=== PATIENT | female | born 1960 ===

== ENCOUNTER 2018-11-18 10:26 | Day surgery (SDC) | payer OTHER ==
[2018-11-16 13:21] LABS: BASOPHILS % (AUTO) 0.8 % (0.0-2.0); EOSINOPHILS % (AUTO) 2.4 % (0.0-3.0); HEMATOCRIT 36.5 % (37.0-47.0); HEMOGLOBIN 12.3 G/DL (12.0-16.0); LYMPHOCYTES % (AUTO) 42.7 % (20.0-45.0); MEAN CORPUSCULAR VOLUME 83 FL (80-99); MONOCYTES % (AUTO) 8.4 % (1.0-10.0); NEUTROPHILS % (AUTO) 45.7 % (45.0-75.0); PLATELET COUNT 144 K/UL (150-450); RED CELL DISTRIBUTION WIDTH 12.9 % (11.6-14.8); WHITE BLOOD COUNT 4.2 K/UL (4.8-10.8)
[2018-11-16 13:36] LABS: APPEARANCE,URINE CLEAR; BILIRUBIN, URINE NEGATIVE (NEGATIVE); GLUCOSE, URINE (UA) NEGATIVE (NEGATIVE); KETONES,URINE NEGATIVE (NEGATIVE); LEUKOCYTE ESTERASE ,URINE NEGATIVE (NEGATIVE); NITRITE,URINE NEGATIVE (NEGATIVE); PH,URINE 6.5 (4.5-8.0); PROTEIN,URINE NEGATIVE (NEGATIVE); UROBILINOGEN,URINE 1 MG/DL (0.0-1.0)
[2018-11-16 13:37] LABS: ALANINE AMINOTRANSFERASE 25 U/L (12-78); ALBUMIN 3.9 G/DL (3.4-5.0); ALBUMIN/GLOBULIN RATIO 1.3 (1.0-2.7); ALKALINE PHOSPHATASE 63 U/L (46-116); ANION GAP 8 mmol/L (5-15); ASPARTATE AMINO TRANSFERASE 22 U/L (15-37); BILIRUBIN,TOTAL 0.6 MG/DL (0.2-1.0); BLOOD UREA NITROGEN 13 mg/dL (7-18); CARBON DIOXIDE 29 MMOL/L (21-32); CHLORIDE 106 MMOL/L (98-107); CREATININE 0.6 MG/DL (0.55-1.30); POTASSIUM 3.8 MMOL/L (3.5-5.1); SODIUM 143 MMOL/L (136-145)
[2018-11-16 13:39] LABS: INR 1.4 (0.9-1.1)
[2018-11-16 13:40] LABS: COLOR,URINE YELLOW
--- NOTE | 2018-11-16 15:48 | Diagnostic Imaging Report ---
Indication: Cough Technique: 2 views of the chest Comparison: None Findings: The heart is enlarged. The left lateral costophrenic angle is blunted, although the posterior costophrenic angle is not. There is mild interstitial prominence. There are possibly Radha B-lines laterally on the right. There is evidence of prior median sternotomy and prosthetic valve placement. The left costophrenic angle is blunted Impression: Cardiomegaly. Evidence of prior valve prosthesis Mild interstitial prominence. Likely chronic but possible Radha B-lines on the right could indicate a component of mild interstitial congestion. Correlate clinical findings. This was discussed by phone with Dr. Hays at the time of interpretation Left costophrenic angle blunting, probably scarring as the posterior costophrenic angle is not blunted
[2018-11-18] VITALS (7 sets, daily range): BP systolic 140–167; BP diastolic 63–73
[~2018-11-18] VITALS: Ht 160 cm; Wt 61.7 kg
[~2018-11-18 10:26] MED LIST: ceFAZolin 1gm IVPB IVPB ONE; celeBREX 200mg Cap **SURGERY PATIENTS ONLY ORAL ONE; oxyCONTIN 20mg tab ORAL ONE
[2018-11-18] MEDS ORDERED: COUMADIN6 MG ORAL (11:23)
[2018-11-18] MEDS ORDERED: celeBREX 200mg Cap **SURGERY PATIENTS ONLY ORAL ONE (11:25)
[2018-11-18] MEDS ORDERED: oxyCONTIN 20mg tab ORAL ONE (11:25)
[2018-11-18 11:47] LABS: INR 1.1 (0.9-1.1)
[2018-11-18] MEDS ORDERED: LR 1000ml 1,000 ML IVLG SCH (12:43)
--- NOTE | 2018-11-18 12:43 | Anethesia Preoperative Eval ---
Anesthesia Pre-op PMH/ROS General Date of Evaluation: November 18, 2018 Anesthesiologist: Edilberto ASA Score: ASA 3 Mallampati Score Class I : Soft palate, uvula, fauces, pillars visible Class II: Soft palate, uvula, fauces visible Class III: Soft palate, base of uvula visible Class IV: Only hard plate visible Mallampati Classification: Class II Surgeon: Sigifredo Diagnosis: right shoulder impingment Surgical Procedure: Right shoulder arthroscopy Anesthesia History: none Family History: no anesthesia problems Allergies: Coded Allergies: No Known Allergies (Unverified , 11/18/18) Medications: see eMAR Patient NPO?: Yes NPO Date: November 17, 2018 NPO Time: 22:00 Past Medical History Cardiovascular: Reports: valve dz - rheumatic heart disease s/p MVR-on warfarin -last dose on 11/13. then bridged with lovenox. Last lovenox dose in am of . To continue lovenox bridge therapy as per wage conciliator; Denies: HTN, CAD, GA, arrhythmia, other Pulmonary: Denies: asthma, COPD, SUKI, other Gastrointestinal/Genitourinary: Denies: GERD, CRI, ESRD, other Neurologic/Psychiatric: Denies: dementia, CVA, depression/anxiety, TIA, other Endocrine: Denies: DM, hypothyroidism, steroids, other HEENT: Denies: cataract (L), cataract (R), glaucoma, [place] (L), [place] (R), other Hematology/Immune: Denies: anemia, DVT, bleeding disorder, other Musculoskeletal/Integumentary: Denies: OA, RA, DJD, DDD, edema, other PSxH Narrative: MVR, Right cataract, lap appy, diagnostic laparoscopy Anesthesia Pre-op Phys. Exam Physician Exam Last Vital Signs Date Time Temp Pulse Resp B/P (MAP) Pulse Ox O2 Delivery O2 Flow Rate FiO2 11/18/18 11:11 Room Air 11/18/18 10:54 97.2 74 18 155/70 98 Constitutional: NAD Cardiovascular: RRR Respiratory: CTA Airway Exam Mallampati Score: Class II MO: full ROM: full Teeth: missing, intact Anesthesia Pre-op A/P Labs Coagulation Test 11/18/18 11:08 Prothrombin Time Pending Prothromb Time International Ratio Pending Activated Partial Thromboplast Time Pending Risk Assessment & Plan Assessment: ASA III Plan: GA with interscalene nerve block Status Change Before Surgery: No Pre-Antibiotics Drug: Ancef 1g Given Within 1 Hr of Incision: Yes Naima Simmons MD November 18, 2018 12:43
[2018-11-18] MEDS ORDERED: DiphenhydrAMINE 50mg/ml Inj IVP PRN (12:45)
[2018-11-18] MEDS ORDERED: Metoclopramide 10mg/2ml Inj IVP PRN (12:45)
[2018-11-18] MEDS ORDERED: fentaNYL 100 mcg/2 mL IV PRN (12:45)
[2018-11-18] MEDS ORDERED: Midazolam 2mg/2ml Inj IVP PRN (12:45)
[2018-11-18] MEDS ORDERED: LORazepam Inj 2mg/ml 1ml IV PRN (12:45)
[2018-11-18] MEDS ORDERED: Hydromorphone 0.5mg/0.5ml inj IVP PRN (12:45)
[2018-11-18] MEDS ORDERED: EPINEPHrine 1mg/1ml Amp ONE (13:39)
[2018-11-18] MEDS ORDERED: Kenalog-40 1ml Vial ONE (13:39)
[2018-11-18] MEDS ORDERED: Ketorolac 30mg Inj ONE (13:40)
[2018-11-18] MEDS ORDERED: Midazolam 2mg/2ml Inj ONE (13:53)
[2018-11-18] MEDS ORDERED: fentaNYL 100 mcg/2 mL IV ONE (13:53)
[2018-11-18] MEDS ORDERED: Propofol 200mg/20ml IV ONE (13:53)
[2018-11-18] MEDS ORDERED: Lidocaine 1% MPF 10mg/ml 5ml ONE (13:53)
[2018-11-18] MEDS ORDERED: Dexamethasone 4mg/ml vial ONE (13:55)
[2018-11-18] MEDS ORDERED: Ropivacaine 5mg/ml Vial 30ml INJ ONE (13:55)
[2018-11-18] MEDS ORDERED: Metoclopramide 10mg/2ml Inj ONE (13:55)
[2018-11-18] MEDS ORDERED: NS Irrig 4000ml IRRIG ONE (14:00)
[2018-11-18] MEDS ORDERED: Naloxone 0.4mg/ml Inj ONE (14:00)
[2018-11-18] MEDS ORDERED: Zemuron 50mg/5ml Inj IV ONE (14:00)
[2018-11-18] MEDS ORDERED: LR 1000ml ONE (14:00)
--- NOTE | 2018-11-18 14:55 | Pre-Procedure Note/Attestation ---
Pre-Procedure Note/Attestation Complete Prior to Procedure Planned Procedure: right Procedure Narrative: shoulder arthroscopy, sad Indications for Procedure Pre-Operative Diagnosis: right shoulder sdhesive capsiltis, sad Attestation I attest that I discussed the nature of the procedure; its benefits; risks and complications; and alternatives (and the risks and benefits of such alternatives ), prior to the procedure, with the patient (or the patient's legal financial services representative). I attest that, if there was a reasonable possibility of needing a blood transfusion, the patient (or the patient's legal financial services representative) was given the [facility] standardized written summary, pursuant to the [place] Blood Safety Act ([place] Health and Safety Code # 1645, as amended). I attest that I re-evaluated the patient just prior to the surgery and that there has been no change in the patient's H&P, except as documented below: Seth Mei MD November 18, 2018 14:55
--- NOTE | 2018-11-18 14:56 | Operative Note - PDOC ---
Operative Note Operative Note Pre-op Diagnosis: right shoulder sdhesive capsiltis, sad Procedure: see op report Post-op Diagnosis: same as pre-op plus Operative Findings: consistent w/pre-op dx studies Anesthesia: regional Specimen: none Complications: none Condition: stable Estimated Blood Loss: none Implant(s) used?: No Seth Mei MD November 18, 2018 14:56
[2018-11-18] MEDS ORDERED: D5 1/2NS 1,000 ML IV SCH (15:00)
[2018-11-18] MEDS ORDERED: HYDROmorphone 1mg/ml Carpuject SUBQ PRN (15:00)
[2018-11-18] MEDS ORDERED: HYDROcodone/Acetamin 5/325 tab ORAL PRN (15:00)
[2018-11-18] MEDS ORDERED: Tylenol #3 tab (300mg/30mg) ORAL PRN (15:00)
--- NOTE | 2018-11-18 15:45 | Immediate Post-Op Evaluation ---
Immediate Post-Op Evalulation Immediate Post-Op Evalulation Procedure: Right shoulder arthroscopy Date of Evaluation: November 18, 2018 Time of Evaluation: 15:44 IV Fluids: 700 Blood Products: 0 Estimated Blood Loss: min Urinary Output: 0 Blood Pressure Systolic: 167 Blood Pressure Diastolic: 71 Pulse Rate: 66 Respiratory Rate: 18 O2 Sat by Pulse Oximetry: 100 Temperature (Fahrenheit): 97.5 Pain Score (1-10): 0 Nausea: No Vomiting: No Complications 0 Patient Status: awake, reacts, patent, none Hydration Status: adequate Drug: Ancef 1g Given Within 1 Hr of Incision: Yes Naima Simmons MD November 18, 2018 15:45
--- NOTE | 2018-11-18 15:46 | 48 Hour Post Anesthesia Eval ---
Post Anesthesia Evaluation Procedure: Right shoulder arthroscopy Date of Evaluation: November 18, 2018 Airway: patent Nausea: No Vomiting: No Pain Intensity: 0 Hydration Status: adequate Cardiopulmonary Status: at baseline Mental Status/LOC: patient returned to baseline Post-Anesthesia Complications: 0 Follow-up care needed: ready to discharge Naima Simmons MD November 18, 2018 15:45
--- NOTE | 2018-11-18 22:45 | Operative Note - Dictated ---
DATE OF OPERATION: 11/18/2018 PREOPERATIVE DIAGNOSES: Right shoulder adhesive capsulitis, impingement syndrome. POSTOPERATIVE DIAGNOSES: 1. Right shoulder partial biceps tendon tear. 2. Right shoulder impingement syndrome. 3. Right shoulder adhesive capsulitis. PROCEDURES: 1. Right shoulder +arthroscopy and extensive intra-articular debridement. 2. Right shoulder subacromial decompression, bursectomy. 3. Pancapsular release of the rotator interval and posterior capsule. SURGEON: Seth Mei M.D. ANESTHESIA: Interscalene general. INDICATION FOR PROCEDURE: The patient is a pleasant female who has had progressive right shoulder pain and difficulty with internal rotation and external rotation and overhead activities, apparently diagnosed with traumatic adhesive capsulitis. MRI showed evidence of some bursitis. Therefore, after failing conservative treatment, elected to undergo right shoulder diagnostic arthroscopy, possible pancapsular release with subacromial decompression, bursectomy. Risks, limitations, expectations, and complications of procedure were discussed in detail. All questions addressed. DESCRIPTION OF PROCEDURE: After informed consent was obtained, the patient was brought to the operating room and was placed under general anesthesia. The right shoulder was prepped and draped in a sterile manner. Time-out was performed. Examination under anesthesia was performed. Forward elevation was 140, abduction was 140, shoulder abductor external rotation was 70, internal rotation was 60. was performed. Once that was done, a posterior lateral stab incision was made. Trocar introduced in the glenohumeral joint. There was no significant chondral damage. The anterior ligament appeared to be intact. There was some fraying along the biceps tendon. shaver was placed in the rotator interval and debridement of the biceps tear was performed representing less than 50% tear of the biceps tendon. Therefore, a formal tenotomy was not needed. There was some fraying of the undersurface of the bursa. At this point, Arthrocare was used to release the rotator interval. Once that was done, the camera was repositioned in the rotator interval and release of the posterior capsule was performed. Once that was done, the camera was placed in the subacromial space. Complete bursectomy was performed. Acromioplasty was started from lateral to medial and completed from posterior to anterior. Once that was done, the bursectomy was completed. Instruments were removed. Portal sites were closed with 3-0 Monocryl sutures. Steri-Strips and sterile dressing were applied. ESTIMATED BLOOD LOSS: None. COMPLICATIONS: None. SPECIMENS: None. IMPLANTS: None. Seth Mei M.D. DR: STEPH JOB#: [id number] CC:
== END 2018-11-18 17:02 | disposition home or self-care (01) ==
LOC: SUR 10:26
DX: M75.41 Impingement syndrome of right shoulder (principal); S46.211A Strain of muscle, fascia and tendon of other parts of biceps, right arm, initial encounter; M75.01 Adhesive capsulitis of right shoulder; I44.4 Left anterior fascicular block; Z79.899 Other long term (current) drug therapy; Z79.01 Long term (current) use of anticoagulants; Z90.89 Acquired absence of other organs; I51.9 Heart disease, unspecified; X58.XXXA Exposure to other specified factors, initial encounter; Y92.9 Unspecified place or not applicable
CPT/HCPCS: 29823; 36415; 71046; 80053; 81001; 85025; 85610; 85730; 93005; J0171; J0690; J1100; J1885; J2250; J2310; J2405; J2704; J2765; J2795; J3010; J3301; 94003; 94150